=== PATIENT | male | born 1950 | race Caucasian/White ===

== ENCOUNTER 2022-04-16 22:17 | Inpatient (IN) | payer OTHER, MEDICARE ==
[~2022-04-16] VITALS: Ht 172.7 cm; Wt 60.2 kg
[2022-04-16 22:30] LABS: BASO # 0.1 K/mm3 (0.0-0.2); EOS # 0.1 K/mm3 (0.0-0.7); EOS % 0.8 % (0.0-4.0); GRAN # 4.7 K/mm3 (1.4-6.5); GRAN % 77.2 % (42.2-75.2); HEMATOCRIT 30.3 % (42.0-52.0); HEMOGLOBIN 10.5 g/dl (13.5-18.0); LYMPH # 0.7 K/mm3 (1.2-3.4); LYMPH % 10.8 % (20.0-51.0); MEAN CELL VOLUME 91 fl (80.0-100.0); MEAN CORPUSCULAR HEMOGLOBIN 31 pg (27-31); MEAN CORPUSCULAR HGB CONC 35 g/dl (33.0-37.0); MEAN PLATELET VOLUME 9.8 fl (7.4-10.4); MONO # 0.6 K/mm3 (0.1-0.6); MONO % 9.9 % (1.7-9.3); PLATELET COUNT 253 K/mm3 (130-400); RED BLOOD COUNT 3.34 M/mm3 (4.20-5.60); REDCELL DISTRIBUTION WIDTH-CV 12.5 % (11.5-14.5)
[2022-04-16 22:36] LABS: COLLECTION METHOD CLEAN CATCH
[2022-04-16 22:48] LABS: MUCOUS Present (NOT PRESENT); PH 6 (5-8); SQUAMOUS EPITHELIAL 0-2 /hpf (0-10); URINE APPEARANCE Hazy (CLEAR/HAZY); URINE BACTERIA Rare /hpf (NONE SEEN); URINE BLOOD 1+ (NEGATIVE); URINE COLOR Yellow (YELLOW); URINE GLUCOSE 3+ (NEGATIVE); URINE KETONE Trace (NEGATIVE); URINE NITRATE Negative (NEGATIVE); URINE PROTEIN(semi-quant) 1+ (NEGATIVE); URINE UROBILINOGEN Negative (NEGATIVE)
[2022-04-16 22:49] LABS: ALBUMIN 3.3 gm/dL (3.4-4.8); BILIRUBIN,TOTAL 0.2 mg/dL (0.2-1.2); CALCIUM 8.1 mg/dL (8.4-10.2); CREATININE, serum 1.71 mg/dL (0.72-1.25); POTASSIUM 4.2 mmol/L (3.5-4.5)
[2022-04-17] MEDS ORDERED: BASAGLAR K100 UNIT/1 SQ (03:52)
[2022-04-17] MEDS ORDERED: VITAMIN D31000 I1 PO (03:53)
[2022-04-17] MEDS ORDERED: TEGRETOL 2200 MG/TA1 PO (03:53)
[2022-04-17] MEDS ORDERED: VALIUM 5MG T5 MG/TAB PO (03:54)
[2022-04-17] MEDS ORDERED: ZESTRIL 20MG TA20 MG PO (03:55)
[2022-04-17] MEDS ORDERED: ZOCOR 80MG80 MG PO (03:56)
[2022-04-17] MEDS ORDERED: PRILOTC PO (03:56)
[2022-04-17] MEDS ORDERED: GLUCOPHAGE500 MG/TAB PO (03:56)
[2022-04-17 04:00] VITALS: BP 133/71; PULSE 102; TEMP 98.3
--- NOTE | 2022-04-17 04:00 | NUR ---
PT ARRIVED FROM ED TO ROOM.
[2022-04-17] MEDS ORDERED: SODIUM CHLORIDE1 GM PO (04:01)
[2022-04-17] MEDS ORDERED: ASPIRIN 81M81 MG/TA2 PO (05:04)
[2022-04-17 05:24] LABS: ARTERIAL BLD GAS O2 SATURATION 91.5 % (92-100); ARTERIAL BLD GAS TCO2 CT 25.5; ARTERIAL BLOOD GAS HCO3 24.2 meq/L (22-26); ARTERIAL BLOOD GAS PCO2 42.1 mmHg (35-45); ARTERIAL BLOOD GAS PO2 62.1 mmHg (80-100); ARTERIAL BLOOD GAS pH 7.38 (7.35-7.45)
[2022-04-17 06:29] LABS: BASO # 0.1 K/mm3 (0.0-0.2); BASO % 1.1 % (0.0-2.0); EOS % 0.8 % (0.0-4.0); GRAN # 3.4 K/mm3 (1.4-6.5); GRAN % 65.3 % (42.2-75.2); LYMPH # 1.1 K/mm3 (1.2-3.4); LYMPH % 20.6 % (20.0-51.0); MEAN CELL VOLUME 94 fl (80.0-100.0); MEAN CORPUSCULAR HGB CONC 33 g/dl (33.0-37.0); MEAN PLATELET VOLUME 10.4 fl (7.4-10.4); MONO # 0.6 K/mm3 (0.1-0.6); PLATELET COUNT 244 K/mm3 (130-400); RED BLOOD COUNT 3.11 M/mm3 (4.20-5.60); REDCELL DISTRIBUTION WIDTH-CV 12.5 % (11.5-14.5)
[2022-04-17 06:38] LABS: HEMATOCRIT 29.1 % (42.0-52.0); HEMOGLOBIN 9.6 g/dl (13.5-18.0); MEAN CORPUSCULAR HEMOGLOBIN 31 pg (27-31)
[2022-04-17 06:40] LABS: CALCIUM 7.8 mg/dL (8.4-10.2); CREATININE, serum 1.46 mg/dL (0.72-1.25); POTASSIUM 4.1 mmol/L (3.5-4.5)
--- NOTE | 2022-04-17 07:08 | NUR ---
Pt alert. Partially oriented. Able to state name and date, but unable to state correct answer for where he currently is. Pt's speech is difficult to comprehend. Pt is more alert and able to answer questions more adequetly now, then when first arriving to the unit. Pt was reporting signigicant pain when first arriving to the unit. Once the pt was settled and pain medication was administered per orders, the pt calmed down. Pt has a flaccid right hand that is contracted. The pt's right leg moves on the bed. Left side of the pt has normal movement. Q2 neuro assessments are being completed. Fall precautions are in place. Seizure precautions are in place. IV fluids continuing per orders. VS currently stable. On room air. BP stable. Afebrile. Pt does have some tremors/shaking. Pt frequently reports he needs to void, but is unable to void. After several attempts the pt was able to void x2, 150 ml and then 100 ml of gabe urine. Pt has a brace on the right hand and had a brace on the right foot. Pt does not have any significant skin issues. Scattered scabbing/crusting noted on the BLE. No edema noted. Admission intake and admission assessments completed. Allergies confirmed. Med rx reviewed. COVID and infectious disease assessments completed. Fall precautions in place. Bed low and locked, call hoff within reach. Pt does not report any questions at this time. No new concerns at this time.
[2022-04-17 07:11] LABS: MAGNESIUM 1.8 mg/dL (1.6-2.6)
[2022-04-17 07:32] LABS: TSH w REFLEX 1.897 uIU/mL (0.350-4.940)
[2022-04-17 07:38] VITALS: BP 114/66; PULSE 73; TEMP 98.2
--- NOTE | 2022-04-17 07:53 | NUR ---
PT AWAKE AND ALERT, GIVEN A URINAL. RIGHT SIDED WEAKNESS NOTED.DENIES ANT COMPLAINTS.
[2022-04-17 11:19] VITALS: BP 113/64; PULSE 78; TEMP 98.5
--- NOTE | 2022-04-17 13:54 | NUR ---
Communications Equipment Operator reviewed patient chart noting he is deemed oriented only to self this date and his speech is difficult to discern. Patient is in isolation precautions. Communications Equipment Operator attempted to contact patient daughter Matthew Echeverria for intake assessment/discharge planning; VM left requesting call back. *Discharge plan pending intake and discharge needs*
--- NOTE | 2022-04-17 14:22 | NUR ---
Care Connector received telephone call from patient adult daughter Matthew, who states patient was living independently in a home adjacent, within access road of their own home in [place], before the family moved to [facility] two weeks ago. Patient was receiving 30 hours of in-home healthcare services a week through the [place]. He had been previously largely independent in his ADLs, but after having been infected with Covid-19 three weeks ago the family noted his health and mobility declined. The decision to move him to [place] to live with family was made as the only other remaining family in [place] is an 18 year old grandchild. The family is currently staying in an AirBN and they have purchased a home that they plan to live in with patient, "we think it'll suit his needs." They are attending the walk-through of the new home today. Daughter has contacted the [place] and an intake was provided for patient at the clinic in [place] the day after the family arrived; he currently sees Dr. Rousseau at the [facility], and he obtains his medications through the [place]. His medications have been refilled and sent to the family's local PO Box already. Patient is seen by primary care at a minimum of once every 60 days. Patient has an intake with two different [place] approved home healthcare agencies on Monday this week, to establish his services locally. He will likely obtain 15 hours of in-home healthcare and 21 hours of respite care. The daughter is in coordination with a remote social media executive through the [place] for support but is largely coordinating all patient's care herself. Daughter states while they await in-home support services, daughter/family is providing all his ADLs/IADLs, except patient ambulates independently in his wheelchair and must be able to transfer and balance independently to avoid multiple recent falls. She provides his breakfast and meal prep through the rest of the day, facilitates his bathing and toileting in the afternoon upon return to home. He is currently using a bedside commode as a toilet riser. The new home will have shower grab bars and a shower chair. Lately, patient has been getting up alot at night to use the bathroom and daughter feels this is likely taxing him as he used to have a handheld bedpan that he used. Daughter is not certain if patient's declining health is related to his inability to fully rest/recover from Covid with the move and his need to do some self-care while the family provides what they can awaiting for the in-home healthcare intakes on Monday. Daughter would appreciate any additional social work support/assistance as patient's medical course continues. Daughter support's patient for skilled rehab as indicated. Patient plans to return to daughter's new home (with her spouse and young children) where he will reside long-term with VA in-home supports. Social Work continues to follow. *Discharge plan pending PT/OT evaluation and medical recommendations*
[2022-04-17 15:21] VITALS: BP 117/67; PULSE 66; TEMP 97.7
--- NOTE | 2022-04-17 18:00 | NUR ---
pt had a calm day, no adverse reaction noted, vss, orient and alert, with slurred speech, due med s given without a problem. pt has a right sided weakness, has brace on the right and left foot. c/o right shoulders pain prn med given
[2022-04-17 20:16] VITALS: BP 128/63; PULSE 87; TEMP 98.4
--- NOTE | 2022-04-17 20:30 | NUR ---
Initial shift assessment done, slurred speech so difficult to understand, Tele on, IV fluids of NS at 100cc/hr, partially oriented, right sided weakness, right arm flaccid, right leg very weak, right arm contractured.
[2022-04-18] VITALS (7 sets, daily range): BP systolic 124–144; BP diastolic 63–83; PULSE 80–99; TEMP 97.8–99.1
--- NOTE | 2022-04-18 07:30 | NUR ---
Did sleep fairly well from about 11pm- 0500, now awake, VSS, repositioned in bed, using the urinal without problems, states hes happy he still is alive for his birthday today!
--- NOTE | 2022-04-18 14:17 | NUR ---
The hospitalist notified NAVDEEP that the patient is medically cleared and ready to discharge. NAVDEEP contacted the patient's daughter, Matthew, to discuss discharge. Matthew confirms that they have been staying in an Airbnb in [place] and they will be closing on a house on . Matthew states that her and her work washer assembler, so the patient would need to be able to transfer to [facility] and bed on his home. NAVDEEP staffed with PT. PT reports that the patient was a max assist of 2 people to get to the commode and an assist of 1 to get back into the bed. PT does not feel that it would be safe for the patient to be home alone. NAVDEEP updated the patient's daughter, Matthew. Matthew would be interested in rehab. She states that she is already getting in home services lined up through the [facility] and had an appointment scheduled on Monday, but if the patient cannot transfer himself, then she is open to SNF. She is open to the facilities in [place] that are contracted with the VA. Matthew verified that the patient does not have Medicare and only VA services. She states that he is 100% service connected. Matthew states that the patient tested positive for COVID 3 weeks ago at an urgent care in [place]. She is unsure which urgent care it is. NAVDEEP contacted and faxed a referral to [facility] and [facility]. Awaiting screens.
--- NOTE | 2022-04-18 18:27 | NUR ---
MYSELF AND ANOTEHR NURSE ATTEMTPED A NEW IV X2 TRIES EACH, ALL UNSUCCESSFUL. CHARGE AWARE.WILL PASS ALONG TO NEXT RN.
--- NOTE | 2022-04-18 21:20 | NUR ---
Initial shift assessment done- has needed an IV site since day shift was unsuccessful, was able to start a 22g to left hand - IV fluids restarted at 100cc/hr and Zosyn at 25cc/hr, Tele on, Using urinal in bed,, slurred speech so at times difficult to understand, overall oriented to name /place--will ask the same question at times, right arm is flacced/contractured, right leg very weak, Bed alarm on- call light in reach,, denies need for pain med but does want his nightime Valium- will give as ordered.
[2022-04-19 03:13] VITALS: BP 143/73; PULSE 85; TEMP 98.5
--- NOTE | 2022-04-19 05:28 | NUR ---
Quiet night-- has been sleeping really good tonight,tele remains on-- IV fluids continue at 100cc/hr, vss , remains on RA
[2022-04-19 06:15] LABS: BASO % 0.9 % (0.0-2.0); EOS # 0.1 K/mm3 (0.0-0.7); EOS % 1.3 % (0.0-4.0); GRAN # 2.5 K/mm3 (1.4-6.5); GRAN % 55.3 % (42.2-75.2); LYMPH # 1.4 K/mm3 (1.2-3.4); LYMPH % 29.7 % (20.0-51.0); MEAN CELL VOLUME 93 fl (80.0-100.0); MEAN CORPUSCULAR HGB CONC 34 g/dl (33.0-37.0); MEAN PLATELET VOLUME 10.1 fl (7.4-10.4); MONO # 0.6 K/mm3 (0.1-0.6); MONO % 12.6 % (1.7-9.3); PLATELET COUNT 254 K/mm3 (130-400)
[2022-04-19 06:28] LABS: HEMATOCRIT 27.9 % (42.0-52.0); HEMOGLOBIN 9.4 g/dl (13.5-18.0); MEAN CORPUSCULAR HEMOGLOBIN 31 pg (27-31)
[2022-04-19 06:37] LABS: ALBUMIN 2.6 gm/dL (3.4-4.8); CALCIUM 7.9 mg/dL (8.4-10.2); CREATININE, serum 1.27 mg/dL (0.72-1.25); MAGNESIUM 1.7 mg/dL (1.6-2.6); PHOSPHOROUS 3.8 mg/dL (2.3-4.7); POTASSIUM 4.1 mmol/L (3.5-4.5)
[2022-04-19 08:00] VITALS: BP 131/72; PULSE 74; TEMP 98.2
--- NOTE | 2022-04-19 08:50 | NUR ---
Admissions verified that the patient does have Medicare. SW notified and faxed an updated facesheet to [facility] and [facility].
--- NOTE | 2022-04-19 10:25 | NUR ---
Michelle, at [facility], reports that they are unable to accept the patient; due to his level of dementia and no speacial care options or beds available at this time.
[2022-04-19 12:00] VITALS: BP 132/78; PULSE 81
--- NOTE | 2022-04-19 14:28 | NUR ---
NAVDEEP contacted Rico at [facility] to follow up on the referral. Rico reports that their clinical team has not been able to look over the referral yet and their business person is suppose to be looking into the patient's VA connections as well. He states that they should be be able to look into these all soon. NAVDEEP faxed updates to [facility].
[2022-04-19 16:00] VITALS: BP 147/80; PULSE 93
--- NOTE | 2022-04-19 20:00 | NUR ---
PATIENT IS ALERT AND ORIENTED X2. PATIENT DOES DISPLAY SOME CONFUSION/FORGETFULNESS. PATIENT TALKING ON PHONE TO DAUGHTER. VSS. SR ON TELE AT 100. C/O FEELING STIFF. GAVE PRN TYLENOL BEFORE BED WITH HS MEDS. PATIENT HAS HX OF CVA WITH RIGHT SIDE AFFECTED/WEAK. 2 MAX ASSIST. PT/OT CONSULTED. HEAD TO TOE ASSESSMENT COMPLETE, SEE CHARTING. IV ABX INFUSING VIA PUMP INTO LEFT HAND IV. PATIENT ON COVID ISOLATION. O2 SATS IN MID 90'S ON RA. NO C/O SOB. NO COUGH NOTED AT THIS TIME. SWALLOWING WITHOUT DIFFICULTY AND TOLERATING ADA DIET. HS BS WAS 291, SSI GIVEN. PATIENT NOW READY FOR BED. LIGHTS TURNED DOWN, BED ALARM ON, AND CALL LIGHT IN REACH. NO OTHER NEEDS AT THIS TIME.
[2022-04-19 20:06] VITALS: BP 133/89; PULSE 100; TEMP 98.8
[2022-04-20] VITALS (7 sets, daily range): BP systolic 105–146; BP diastolic 48–91; PULSE 66–93; TEMP 98–99
[2022-04-20 06:51] LABS: BASO % 0.9 % (0.0-2.0); EOS # 0.1 K/mm3 (0.0-0.7); GRAN # 2.8 K/mm3 (1.4-6.5); LYMPH # 1.2 K/mm3 (1.2-3.4); LYMPH % 27.1 % (20.0-51.0); MEAN CELL VOLUME 94 fl (80.0-100.0); MEAN CORPUSCULAR HGB CONC 33 g/dl (33.0-37.0); MEAN PLATELET VOLUME 9.5 fl (7.4-10.4); MONO # 0.5 K/mm3 (0.1-0.6); MONO % 9.8 % (1.7-9.3); PLATELET COUNT 267 K/mm3 (130-400); RED BLOOD COUNT 3.07 M/mm3 (4.20-5.60); REDCELL DISTRIBUTION WIDTH-CV 13.1 % (11.5-14.5)
[2022-04-20 06:52] LABS: HEMATOCRIT 28.7 % (42.0-52.0); HEMOGLOBIN 9.5 g/dl (13.5-18.0); MEAN CORPUSCULAR HEMOGLOBIN 31 pg (27-31)
[2022-04-20 07:15] LABS: ALBUMIN 2.6 gm/dL (3.4-4.8); CREATININE, serum 1.37 mg/dL (0.72-1.25); MAGNESIUM 1.8 mg/dL (1.6-2.6); PHOSPHOROUS 3.7 mg/dL (2.3-4.7); POTASSIUM 4.4 mmol/L (3.5-4.5)
--- NOTE | 2022-04-20 11:22 | NUR ---
Patient alert and oriented. Complaints of abdominal pain and headache. PRN tylenol given. PT reported very large incontinent and continent bowel movement while working with patient, loose, brown, mucous and very foul smelling. Patient right side upper extremity flaccid, right lower extremity chirag weak. Brace and orthotic shoe used for walking support. Otherwise neurologically intact.
--- NOTE | 2022-04-20 13:13 | NUR ---
Rico, at [facility], reports that they would need the results from the urgent care in [place], confirming he tested positive for COVID then. Otherwise, they would have to go off when the patient tested positive here and they would not be able to take him until 10 days after that test. He tested positive at the hospital on 04/16. NAVDEEP contacted the patient's daughter, Matthew, to update. Matthew reports that she believes they stopped at an urgent care in [place], [place], when they were on their way up here. She cannot remember what urgent care it was or any businesses/identifiers that were located by it. NAVDEEP updated Nina, c programmer. Nina recommended calling [place] [facility]. NAVDEEP contacted [place] [facility]. They report that this is not the right dept for this. NAVDEEP contacted [facility] in [place] to inquire if they report their COVID positive and would have this on record. NAVDEEP was transferred to a [place] that works there. NAVDEEP left her a voicemail.
--- NOTE | 2022-04-20 18:18 | NUR ---
Patient worked with therapy well today. Had episodes of very loose, watery and mucousy bowel movements during therapy this morning. Patient had difficulty controlling bowel during therapy as well. No further bowel movements throughout the day, sample needed for c-diff test. Patient takes meds whole with water. Complaints of headache and abdominal pain today. Patient alert and oriented with moments of some confused conversation about "[facility]il, the [facility] not wanting [facility]" and asking if staff was "mad at him". provider discontinued neurochecks. Discharge plan for placement, however 10 wait with covid + test.
[2022-04-21 04:27] VITALS: BP 127/75; PULSE 92; TEMP 98.1
--- NOTE | 2022-04-21 05:45 | NUR ---
ASSESSMENT COMPLETE FOR SUPERVISING FLOORPERSON. PT RESTLESS IN BED. WHEN ASKED WHAT WAS WRONG. PT STATED HE DIDN'T WANT TO , THAT HE NEEDED THE PILL THAT STOPPED HIM FROM FARTING. I REASSURED PT THAT EVEN THOUGH I DIDN'T HAVE ANY PILLS THAT WOULD STOP HIM FROM PASSING GAS, HE WOULD NOT BECAUSE OF IT AND THAT I WOULD CHECK ON HIM OFTEN, TO MAKE SURE HE WAS OK. PT SAID THANK YOU, GOD BLESS YOU, I WILL BE ABLE TO SLEEP TONIGHT. PT EXPRESSED NO ADDITIONAL NEEDS AT THIS TIME. CALL LIGHT WITHIN REACH.
[2022-04-21 07:05] LABS: BASO # 0.1 K/mm3 (0.0-0.2); EOS # 0.1 K/mm3 (0.0-0.7); GRAN # 3.2 K/mm3 (1.4-6.5); GRAN % 62.4 % (42.2-75.2); HEMOGLOBIN 10.7 g/dl (13.5-18.0); LYMPH # 1.4 K/mm3 (1.2-3.4); LYMPH % 26.4 % (20.0-51.0); MEAN CELL VOLUME 93 fl (80.0-100.0); MEAN CORPUSCULAR HEMOGLOBIN 31 pg (27-31); MEAN CORPUSCULAR HGB CONC 34 g/dl (33.0-37.0); MONO # 0.4 K/mm3 (0.1-0.6); PLATELET COUNT 306 K/mm3 (130-400); RED BLOOD COUNT 3.41 M/mm3 (4.20-5.60)
[2022-04-21 07:08] LABS: HEMATOCRIT 31.6 % (42.0-52.0)
[2022-04-21 07:33] LABS: CALCIUM 8.6 mg/dL (8.4-10.2); CREATININE, serum 1.35 mg/dL (0.72-1.25); MAGNESIUM 1.8 mg/dL (1.6-2.6); POTASSIUM 4.2 mmol/L (3.5-4.5)
[2022-04-21 07:49] VITALS: BP 100/68; PULSE 89; TEMP 97.9
--- NOTE | 2022-04-21 10:21 | NUR ---
Patient resting in chair on assessment. Placed back in bed. No complaints of pain. Skin intact. Lungs clear. Patient alert to self, and hospital. Mildy alert to situation. Patient understands to not get out of bed. Fall precuations in place. Meds taken whole with water.
--- NOTE | 2022-04-21 10:41 | NUR ---
Rico, at [facility], reports that they are able to accept the patient for a skilled stay; but cannot take him until Monday, 04/26, unless we gets records of the patient's positive COVID test in [place] or prove that the infection is not acute and is residual. SW to fax updates to [facility].
[2022-04-21 11:47] VITALS: BP 129/81; PULSE 81; TEMP 98.1
[2022-04-21 15:45] VITALS: BP 143/75; PULSE 80; TEMP 98.1
--- NOTE | 2022-04-21 17:23 | NUR ---
Patient rested comfortably today. No complaints of pain, no SOB. No change in patient status during shift. Discharge plan for placement.
[2022-04-21 20:54] VITALS: BP 119/66; PULSE 84; TEMP 98.5
[2022-04-22 00:05] VITALS: BP 116/72; PULSE 79; TEMP 98.3
[2022-04-22 03:30] VITALS: BP 113/68; PULSE 77; TEMP 97.7
--- NOTE | 2022-04-22 05:45 | NUR ---
ASSESSMENT COMPLETE FOR ELDERLY CAREGIVER. PT CONTINUES WITH SOME CONFUSION. PT HAD ONE INCONTINENT STOOL THIS SHIFT. PT DENIED PAIN, SOB OR DIZZINESS. PT HAD AN OTHERWISE UNEVENTFUL NIGHT. PT EXPRESSED NO ADDITONAL NEEDS AT THIS TIME. CALL LIGHT WITHIN REACH.
[2022-04-22 07:53] VITALS: BP 102/65; PULSE 82; TEMP 97.5
[2022-04-22 08:12] LABS: BASO # 0.1 K/mm3 (0.0-0.2); BASO % 0.9 % (0.0-2.0); EOS # 0.1 K/mm3 (0.0-0.7); GRAN # 3.1 K/mm3 (1.4-6.5); GRAN % 55.8 % (42.2-75.2); HEMOGLOBIN 10.8 g/dl (13.5-18.0); LYMPH # 1.8 K/mm3 (1.2-3.4); LYMPH % 32.1 % (20.0-51.0); MEAN CELL VOLUME 91 fl (80.0-100.0); MEAN CORPUSCULAR HEMOGLOBIN 31 pg (27-31); MEAN CORPUSCULAR HGB CONC 35 g/dl (33.0-37.0); MEAN PLATELET VOLUME 9.8 fl (7.4-10.4); MONO # 0.5 K/mm3 (0.1-0.6); MONO % 8.8 % (1.7-9.3); PLATELET COUNT 331 K/mm3 (130-400); RED BLOOD COUNT 3.44 M/mm3 (4.20-5.60); REDCELL DISTRIBUTION WIDTH-CV 13.2 % (11.5-14.5)
[2022-04-22 08:14] LABS: HEMATOCRIT 31.2 % (42.0-52.0)
[2022-04-22 08:26] LABS: CALCIUM 8.3 mg/dL (8.4-10.2); CREATININE, serum 1.42 mg/dL (0.72-1.25); MAGNESIUM 1.9 mg/dL (1.6-2.6); PHOSPHOROUS 4.5 mg/dL (2.3-4.7); POTASSIUM 4.2 mmol/L (3.5-4.5)
[2022-04-22 11:45] VITALS: BP 112/67; PULSE 83; TEMP 97.6
--- NOTE | 2022-04-22 15:26 | NUR ---
NAVDEEP updated the patient's daughter, Matthew, about [facility]'s acceptance and how they can take on Monday. Matthew verbalized understanding and is in agreement to the plan. She states that she is getting home health services all set up for the patient for when he is ready to discharge from [facility]. NAVDEEP to fax updates to [facility].
[2022-04-22 15:45] VITALS: BP 113/65; PULSE 84; TEMP 97.6
--- NOTE | 2022-04-22 17:57 | NUR ---
saraneverardo t had a fairly good day orient x4, vss. due medication given as prescribed no adverse reaction noted. denies complaints.
[2022-04-22 19:49] VITALS: BP 137/75; PULSE 93; TEMP 97.9
[2022-04-23 00:04] VITALS: BP 133/52; PULSE 80; TEMP 98.1
[2022-04-23 04:00] VITALS: BP 115/59; PULSE 89; TEMP 98
--- NOTE | 2022-04-23 06:00 | NUR ---
ASSESSMENT COMPLETE FOR CASINO SUPERVISOR. PT RESTING IN BED NAPPING. PT COMPLAINED RIGHT AT SHIFT CHANGE OF GENERAL BODY ACHES. PT GIVEN TYLENOL FOR PAIN. PT DENIED CHEST PAIN, PALPITATIONS, SOB, N,V,D OR DIZZINESS. PT EXPRESSED NO ADDITIONAL NEEDS AT THIS ASSESSMENT. CALL LIGHT WITHIN REACH.
[2022-04-23 08:21] VITALS: BP 124/70; PULSE 80; TEMP 98.2
[2022-04-23 12:05] VITALS: BP 126/564; BP 126/64; PULSE 75; TEMP 98.2
[2022-04-23 16:49] VITALS: BP 116/68; PULSE 84; TEMP 97.7
--- NOTE | 2022-04-23 17:44 | NUR ---
PT HAD A CALM DAY, VSS, ORIENT X4, DUE PRESCRIBED MEDICATION GIVEN, NO ADVERSE REACTION DOCUMENTED, PT RAISED COMPLAINTS PAIN ON THE RIGHT SHOULDER, PRN PAIN MEDICATION GIVEN PRESCRIBED.
[2022-04-23 20:27] VITALS: BP 150/60; PULSE 83; TEMP 97.7
[2022-04-24] VITALS (7 sets, daily range): BP systolic 100–138; BP diastolic 51–88; PULSE 69–93; TEMP 97.4–98.3
--- NOTE | 2022-04-24 05:00 | NUR ---
ASSESSMENT COMPLETE FOR ICT ANALYST. PT RESTING IN BED NAPPING. PT COMPLAINED OF GENERAL BODY ACHES. PT GIVEN TYLENOL FOR PAIN. PT DID NOT FEEL TYLENOL WAS EFFECTIVE FOR HIS PAIN. HOSPITALIST CALLED. NORCO ORDERED AND GIVEN. PT FELT NORCO WAS EFFECTIVE FOR HIS PAIN. PT DENIED CHEST PAIN, PALPITATIONS, SOB, N,V,D OR DIZZINESS. PT EXPRESSED NO ADDITIONAL NEEDS AT THIS TIME. CALL LIGHT WITHIN REACH.
--- NOTE | 2022-04-24 07:30 | NUR ---
PT EATING BREAKFAST DURING BEDSIDE REPORT.
[2022-04-24 07:44] LABS: BASO # 0.1 K/mm3 (0.0-0.2); BASO % 1.3 % (0.0-2.0); EOS # 0.1 K/mm3 (0.0-0.7); EOS % 2.1 % (0.0-4.0); GRAN # 3.1 K/mm3 (1.4-6.5); GRAN % 60.4 % (42.2-75.2); HEMOGLOBIN 10.6 g/dl (13.5-18.0); LYMPH # 1.5 K/mm3 (1.2-3.4); LYMPH % 28.5 % (20.0-51.0); MEAN CELL VOLUME 93 fl (80.0-100.0); MEAN CORPUSCULAR HEMOGLOBIN 32 pg (27-31); MEAN CORPUSCULAR HGB CONC 34 g/dl (33.0-37.0); MONO # 0.4 K/mm3 (0.1-0.6); MONO % 7.3 % (1.7-9.3); PLATELET COUNT 271 K/mm3 (130-400); RED BLOOD COUNT 3.36 M/mm3 (4.20-5.60); REDCELL DISTRIBUTION WIDTH-CV 13.5 % (11.5-14.5)
[2022-04-24 08:27] LABS: CALCIUM 8.2 mg/dL (8.4-10.2); CREATININE, serum 1.38 mg/dL (0.72-1.25); POTASSIUM 4.2 mmol/L (3.5-4.5)
[2022-04-24 08:30] LABS: HEMATOCRIT 31.3 % (42.0-52.0)
--- NOTE | 2022-04-24 18:10 | NUR ---
PT HAD A CALM DAY, VSS, ORIENT X4, DUE MEDS GIVEN NO ADVERSE REACTION NOTED. COMPLAINTS OF RIGHT SHOULDER AND RIGHT LOWER EXTRIMITY PAIN PT GIVEN PRN PAIN MEDICATIONS PRESCRIBED.
[2022-04-25 03:15] VITALS: BP 109/68; PULSE 75; TEMP 97.9
--- NOTE | 2022-04-25 05:30 | NUR ---
ASSESSMENT COMPLETE FOR SENIOR QUALITY ASSURANCE ANALYST. PT UPSET ABOUT GOING TO [facility] AND DIDN'T WANT TO TAKE HIS PILLS, "I'M JUST GOING TO ." PT FEELS, "THEY'RE GOING TO LOCK ME UP!" I SPOKE WITH THE PT ABOUT BEING ABLE TO REHAB AND GOT STRONGER, TO POSSIBLY BE MORE INDEPENDENT. DAUGHTER CALLED. SHE ASSURED PT THAT HE COULD COME STAY WITH HER ONCE HE GETS STRONGER. PT CALM DOWN AND DECIDED TO TAKE HIS PILLS. PT EXPRESSED NO ADDITIONAL NEEDS. CALL LIGHT WITHIN REACH.
[2022-04-25 06:59] LABS: BASO # 0.1 K/mm3 (0.0-0.2); BASO % 0.9 % (0.0-2.0); EOS # 0.1 K/mm3 (0.0-0.7); EOS % 1.7 % (0.0-4.0); GRAN # 3.8 K/mm3 (1.4-6.5); GRAN % 65.3 % (42.2-75.2); HEMOGLOBIN 11.8 g/dl (13.5-18.0); LYMPH # 1.4 K/mm3 (1.2-3.4); LYMPH % 23.8 % (20.0-51.0); MEAN CELL VOLUME 93 fl (80.0-100.0); MEAN CORPUSCULAR HEMOGLOBIN 31 pg (27-31); MEAN CORPUSCULAR HGB CONC 34 g/dl (33.0-37.0); MEAN PLATELET VOLUME 10.1 fl (7.4-10.4); MONO # 0.4 K/mm3 (0.1-0.6); MONO % 7.6 % (1.7-9.3); RED BLOOD COUNT 3.78 M/mm3 (4.20-5.60); REDCELL DISTRIBUTION WIDTH-CV 13.5 % (11.5-14.5)
[2022-04-25 07:02] LABS: HEMATOCRIT 35.1 % (42.0-52.0); PLATELET COUNT 381 K/mm3 (130-400)
[2022-04-25 07:04] LABS: CALCIUM 8.6 mg/dL (8.4-10.2); CREATININE, serum 1.61 mg/dL (0.72-1.25); POTASSIUM 4.9 mmol/L (3.5-4.5)
[2022-04-25 08:10] VITALS: BP 124/79; PULSE 83; TEMP 98.1
--- NOTE | 2022-04-25 09:27 | NUR ---
ASSESSMENT COMPLETE FOR OPERATIONS CHIEF. PT UPSET ABOUT GOING TO [facility] AND DIDN'T WANT TO TAKE HIS PILLS, "I'M JUST GOING TO ." PT FEELS, "THEY'RE GOING TO LOCK ME UP!" I SPOKE WITH THE PT ABOUT BEING ABLE TO REHAB AND GOT STRONGER, TO POSSIBLY BE MORE INDEPENDENT. DAUGHTER CALLED. SHE ASSURED PT THAT HE COULD COME STAY WITH HER ONCE HE GETS STRONGER. PT CALM DOWN AND DECIDED TO TAKE HIS PILLS. PT EXPRESSED NO ADDITIONAL NEEDS. CALL LIGHT WITHIN REACH.
--- NOTE | 2022-04-25 09:42 | NUR ---
PT RESTING IN BED. MORNING MEDICATIONS GIVEN. SHIFT ASSESSMENT COMPLETED. PT DENIES ANY PAIN OR NEEDS. R SIDE FLACCID. PT SPEECH IN GARBLED BUT PT A&O. PT ON ROOM AIR. WILL CONTINUE TO MONITOR.
[2022-04-25 11:25] VITALS: BP 119/69; PULSE 89; TEMP 98.1
--- NOTE | 2022-04-25 14:09 | NUR ---
Karina with [facility] states that they are able to accept this patient today if he is medically cleared. Hospitalist and patient's RN notified.
--- NOTE | 2022-04-25 14:44 | NUR ---
Patient's discharge orders and clinical updates faxed to [facility]. Transportation arranged for them to pick the patient up at 1530 today. Patient's RN updated. Phone call made to Matthew and notified of discharge plan. Matthew verbalizes her agreement.
--- NOTE | 2022-04-25 15:47 | NUR ---
IV D/C. REPORT CALLED TO RN AT [facility]. DISCHARGE PACKET GIVEN TO SENIOR ACCOUNTING CLERK. PT ESCORTED DOWN WITH PERSONAL BELONGINGS. WILL D/C FROM SYSTEM.
== END 2022-04-25 15:48 | DRG 177 ==
LOC: COL.ER 22:17 → MEDICAL 04-17 02:49
PROVIDERS: Emergency Medicine; Internal Medicine; Nurse Practitioner Family; ADMIT Student in an Organized Health Care Education/Training Program
DX: U07.1 COVID-19 (principal); G93.41 Metabolic encephalopathy; I69.354 Hemiplegia and hemiparesis following cerebral infarction affecting left non-dominant side; N39.0 Urinary tract infection, site not specified; E87.1 Hypo-osmolality and hyponatremia; E87.2 Acidosis; I12.9 Hypertensive chronic kidney disease with stage 1 through stage 4 chronic kidney disease, or unspecified chronic kidney disease; N18.2 Chronic kidney disease, stage 2 (mild); E78.5 Hyperlipidemia, unspecified; G40.909 Epilepsy, unspecified, not intractable, without status epilepticus; D64.9 Anemia, unspecified; M25.511 Pain in right shoulder; M25.561 Pain in right knee; E11.649 Type 2 diabetes mellitus with hypoglycemia without coma; S00.91XA Abrasion of unspecified part of head, initial encounter; W18.39XA Other fall on same level, initial encounter; E11.65 Type 2 diabetes mellitus with hyperglycemia; Z79.4 Long term (current) use of insulin; Z87.820 Personal history of traumatic brain injury; Y93.89 Activity, other specified; Y92.89 Other specified places as the place of occurrence of the external cause
CPT/HCPCS: 99233-AI; J0696; J1644; J1815; J2270; J2405; J2543; J7030

== ENCOUNTER → 2022-04-28 | Outpatient (CLI) | payer MEDICARE ==
[~2022-04-28] MED LIST: ASPIRIN 81M81 MG/TA2 PO; BASAGLAR K100 UNIT/1 SQ; GLUCOPHAGE500 MG/TAB PO; PRILOTC PO; SODIUM CHLORIDE1 GM PO; TEGRETOL 2200 MG/TA1 PO; VALIUM 5MG T5 MG/TAB PO; VITAMIN D31000 I1 PO; ZESTRIL 20MG TA20 MG PO; ZOCOR 80MG80 MG PO
[2022-04-28 10:20] LABS: BASO # 0.1 K/mm3 (0.0-0.2); BASO % 1.4 % (0.0-2.0); EOS # 0.1 K/mm3 (0.0-0.7); EOS % 2.2 % (0.0-4.0); GRAN # 3.4 K/mm3 (1.4-6.5); GRAN % 57.9 % (42.2-75.2); LYMPH # 1.8 K/mm3 (1.2-3.4); LYMPH % 30.4 % (20.0-51.0); MEAN CELL VOLUME 94 fl (80.0-100.0); MEAN CORPUSCULAR HGB CONC 33 g/dl (33.0-37.0); MEAN PLATELET VOLUME 11.4 fl (7.4-10.4); MONO # 0.5 K/mm3 (0.1-0.6); MONO % 7.8 % (1.7-9.3); PLATELET COUNT 348 K/mm3 (130-400); RED BLOOD COUNT 3.07 M/mm3 (4.20-5.60); REDCELL DISTRIBUTION WIDTH-CV 13.9 % (11.5-14.5)
[2022-04-28 10:21] LABS: HEMATOCRIT 28.7 % (42.0-52.0); HEMOGLOBIN 9.6 g/dl (13.5-18.0); MEAN CORPUSCULAR HEMOGLOBIN 31 pg (27-31)
[2022-04-28 10:44] LABS: CALCIUM 8.2 mg/dL (8.4-10.2); CREATININE, serum 1.64 mg/dL (0.72-1.25); POTASSIUM 4.9 mmol/L (3.5-4.5)
== END ==
LOC: ZLAB.STJ 09:44
PROVIDERS: Internal Medicine
DX: K72.90 Hepatic failure, unspecified without coma (principal)

== ENCOUNTER → 2022-05-03 | Outpatient (CLI) | payer MEDICARE ==
[2022-05-03 13:58] LABS: CALCIUM 8.8 mg/dL (8.4-10.2); CREATININE, serum 1.7 mg/dL (0.72-1.25); POTASSIUM 4.8 mmol/L (3.5-4.5)
== END ==
LOC: ZLAB.STJ 13:12
PROVIDERS: Internal Medicine
DX: G93.41 Metabolic encephalopathy (principal)

== ENCOUNTER → 2022-05-09 | Outpatient (CLI) | payer MEDICARE ==
[2022-05-09 10:37] LABS: CALCIUM 8.9 mg/dL (8.4-10.2); CREATININE, serum 1.36 mg/dL (0.72-1.25); POTASSIUM 4.7 mmol/L (3.5-4.5)
== END ==
LOC: ZLAB.STJ 09:46
PROVIDERS: Internal Medicine
DX: G43.419 Hemiplegic migraine, intractable, without status migrainosus (principal)

== ENCOUNTER 2022-12-12 05:39 | Observation (INO) | payer OTHER, MEDICARE ==
[~2022-12-12] VITALS: Ht 170.2 cm; Wt 72.7 kg
[~2022-12-12 05:39] MED LIST changes: +AMOXICILLIN 8751 TAB PO; +CEPHALEXIN500 M1 PO; +DICLOFENAC SOD2.5 ML TOP; +FERRO-TIME325 MG PO; +LIPITOR 80MG80 MG PO; +MYLICON 8080 MG/TAB. PO; +NORVASC2.5 MG PO
[2022-12-12 06:11] LABS: BASO # 0.1 K/mm3 (0.0-0.2); EOS # 0.1 K/mm3 (0.0-0.7); EOS % 1.4 % (0.0-4.0); GRAN # 5.9 K/mm3 (1.4-6.5); GRAN % 67.6 % (42.2-75.2); HEMOGLOBIN 12.3 g/dl (13.5-18.0); LYMPH # 2.1 K/mm3 (1.2-3.4); LYMPH % 24.7 % (20.0-51.0); MEAN CELL VOLUME 95 fl (80.0-100.0); MEAN CORPUSCULAR HEMOGLOBIN 33 pg (27-31); MEAN CORPUSCULAR HGB CONC 34 g/dl (33.0-37.0); MEAN PLATELET VOLUME 9.5 fl (7.4-10.4); MONO # 0.4 K/mm3 (0.1-0.6); MONO % 4.8 % (1.7-9.3); PLATELET COUNT 269 K/mm3 (130-400); RED BLOOD COUNT 3.77 M/mm3 (4.20-5.60); REDCELL DISTRIBUTION WIDTH-CV 12.7 % (11.5-14.5)
[2022-12-12 06:14] LABS: HEMATOCRIT 35.8 % (42.0-52.0)
[2022-12-12 06:24] LABS: ALBUMIN 4.1 gm/dL (3.4-4.8); BILIRUBIN,TOTAL 0.2 mg/dL (0.2-1.2); C-REACTIVE PROTEIN 0.23 mg/dL (0.00-0.50); CALCIUM 8.8 mg/dL (8.4-10.2); CREATININE, serum 1.61 mg/dL (0.72-1.25); TOTAL PROTEIN 7.4 gm/dL (6.2-8.1)
[2022-12-12 06:31] LABS: COLLECTION METHOD IN
[2022-12-12 06:47] LABS: SQUAMOUS EPITHELIAL None Seen /hpf (0-10); URINE BACTERIA None Seen /hpf (NONE SEEN); URINE RBC 0-2 /hpf (0-2)
[2022-12-12 06:50] LABS: URINE APPEARANCE Clear (CLEAR/HAZY); URINE BLOOD TRACE-INTACT (NEGATIVE); URINE COLOR Yellow (YELLOW); URINE GLUCOSE TRACE (NEGATIVE); URINE KETONE Negative (NEGATIVE); URINE NITRATE Negative (NEGATIVE); URINE PROTEIN(semi-quant) 1+ (NEGATIVE); URINE UROBILINOGEN 0.2 E.U/dL (0.2-1.0)
--- NOTE | 2022-12-12 10:26 | NUR ---
SW consulted for possible placement. SW met with patients daughter Matthew at bedside. Per daughter, patient at baseline is able to ambulate with the assistance of a cane, but also has a wheelchair at home to utilize. He is able to dress on his own, but does require supervision with showing due to being a fall risk. Patients speech is slurred at baseline due to past hx of TBI while in [place]. He has in home caregivers 7 days a week (M-F for 4 hours and Sat/sun for 8 hours each) along with PT/OT therapy through a company called [employer] that is contracted through the [place]. Patient has an RN that comes once a month along with a PCP that comes to the home, Pastora Smith whom saw the patient on 12/07 post dc from this facility, to which Matthew verbalizes that the patient was talking and active. Patients also has a PCP through the [facility] . Matthew verbalizes concern over the patients mentation this morning as yesterday he was at his baseline, meaning talking in full conversations eating normal, drinking normal, and ambulating at his baseline. This morning, Matthew states that the patients mentation took a sharp decline stating that he was unable to ambulate to the bathroom at all and his speech was mumbled. Matthew attempts to arouse patient with SW at bedside, and patient unable to make words and minimally arouses. NAVDEEP asked Matthew about fdc placement, which she states that this is not something they are interested in and that they have made sure to put into place all needed services with the [facility] to keep the patient at home, instead she is more concerned with finding out why the patient went to bed at baseline and woke up declined. Patients RN updated along with ED physician and hospitalist.
[2022-12-12 13:53] VITALS: BP 102/68; PULSE 75; TEMP 97.8
[2022-12-12 16:35] VITALS: BP 134/61; PULSE 65; TEMP 98.4
[2022-12-12] MEDS ORDERED: VALIUM 5MG T5 MG/TAB PO (19:03)
[2022-12-12 19:48] VITALS: BP 153/81; PULSE 80; TEMP 97.5
[2022-12-13 00:26] VITALS: BP 114/57; PULSE 59; TEMP 98
[2022-12-13 05:06] VITALS: BP 101/50; PULSE 69; TEMP 97.9
[2022-12-13 06:54] LABS: BASO # 0.1 K/mm3 (0.0-0.2); BASO % 0.8 % (0.0-2.0); EOS # 0.1 K/mm3 (0.0-0.7); EOS % 0.8 % (0.0-4.0); GRAN # 4.7 K/mm3 (1.4-6.5); GRAN % 64.9 % (42.2-75.2); HEMOGLOBIN 11.2 g/dl (13.5-18.0); LYMPH # 1.9 K/mm3 (1.2-3.4); LYMPH % 26.2 % (20.0-51.0); MEAN CELL VOLUME 94 fl (80.0-100.0); MEAN CORPUSCULAR HEMOGLOBIN 33 pg (27-31); MEAN CORPUSCULAR HGB CONC 35 g/dl (33.0-37.0); MEAN PLATELET VOLUME 9.4 fl (7.4-10.4); MONO # 0.5 K/mm3 (0.1-0.6); MONO % 6.9 % (1.7-9.3); PLATELET COUNT 262 K/mm3 (130-400); REDCELL DISTRIBUTION WIDTH-CV 12.8 % (11.5-14.5)
[2022-12-13 06:55] LABS: HEMATOCRIT 31.8 % (42.0-52.0)
[2022-12-13 07:21] LABS: CALCIUM 8.5 mg/dL (8.4-10.2); CREATININE, serum 1.28 mg/dL (0.72-1.25); POTASSIUM 4.1 mmol/L (3.5-4.5)
[2022-12-13 08:00] VITALS: BP 109/56; PULSE 66; TEMP 98
--- NOTE | 2022-12-13 10:11 | NUR ---
NAVDEEP notifed by hospitalist that the patient is ready of discharge. Phone call made to the patients daughter to notify. No aswer, message left.
[2022-12-13 11:49] VITALS: BP 114/55; PULSE 62; TEMP 97.8
--- NOTE | 2022-12-13 11:55 | NUR ---
PATIENT HAS EEG ORDERED. IF PATIENT DISCHARGES BEFORE EEG DONE. CAN ORDER EEG AN OUTPATIENT. THANKS
--- NOTE | 2022-12-13 13:56 | NUR ---
Initial visit: Nurse Unit Manager stopped by room on rounds. Pt was resting and content. Pt has no needs right now. Nurse Unit Manager will follw up as needed.
--- NOTE | 2022-12-13 15:27 | NUR ---
NAVDEEP received phone call from the patients daughter Matthew. Update provided and Matthew notifed that the patient is able to return home later today. Matthew verbalizes her agreement and verbalizes that she will be in this afternoon after she got off of work to pick the patient up. Patients RN updated.
[2022-12-13 16:00] VITALS: BP 140/70; PULSE 71; TEMP 98
--- NOTE | 2022-12-13 17:09 | NUR ---
Patient discharged to home, picked up by daughter. Daughter and patient educated on discharge instructions and medications, both verbalized understanding. Safely assisted to car via wheelchair by nursing staff.
== END 2022-12-13 17:10 | disposition home health service (06) ==
LOC: COL.ER 05:39 → MEDICAL 12:25
PROVIDERS: Emergency Medicine; ADMIT Internal Medicine
DX: G40.909 Epilepsy, unspecified, not intractable, without status epilepticus (principal); R41.82 Altered mental status, unspecified; E11.10 Type 2 diabetes mellitus with ketoacidosis without coma; E11.22 Type 2 diabetes mellitus with diabetic chronic kidney disease; I12.9 Hypertensive chronic kidney disease with stage 1 through stage 4 chronic kidney disease, or unspecified chronic kidney disease; N18.9 Chronic kidney disease, unspecified; I69.351 Hemiplegia and hemiparesis following cerebral infarction affecting right dominant side; E55.9 Vitamin D deficiency, unspecified; E78.1 Pure hyperglyceridemia; Z79.84 Long term (current) use of oral hypoglycemic drugs; Z79.4 Long term (current) use of insulin; Z79.899 Other long term (current) drug therapy
CPT/HCPCS: G0378; J0456; J0696; J1815; J2405; J2550; J7030; J7050; Q9967

== ENCOUNTER 2023-01-09 10:30 | Outpatient (RCR) | payer OTHER, MEDICARE | END 2023-01-15 | disposition home or self-care (01) | LOC: MKS.ESL.PT | DX: G46.4 Cerebellar stroke syndrome (principal) ==

== ENCOUNTER 2023-06-02 08:52 | Observation (INO) | payer MEDICARE ==
[~2023-06-02] VITALS: Ht 170.2 cm; Wt 66.2 kg
[~2023-06-02 08:52] MED LIST changes: -DICLOFENAC SOD2.5 ML TOP; +LIPITOR 40MG TA40 MG PO; -LIPITOR 80MG80 MG PO; +VOLTAREN GEL 1%1 TU TP; +ZOFRAN ODT4 MG PO
[2023-06-02 09:21] LABS: BASO # 0.1 K/mm3 (0.0-0.2); BASO % 0.6 % (0.0-2.0); EOS # 0.1 K/mm3 (0.0-0.7); EOS % 0.7 % (0.0-4.0); GRAN # 7.2 K/mm3 (1.4-6.5); GRAN % 81.4 % (42.2-75.2); HEMATOCRIT 37.6 % (42.0-52.0); HEMOGLOBIN 12.5 g/dl (13.5-18.0); LYMPH # 1.1 K/mm3 (1.2-3.4); LYMPH % 11.9 % (20.0-51.0); MEAN CELL VOLUME 93 fl (80.0-100.0); MEAN CORPUSCULAR HEMOGLOBIN 31 pg (27-31); MEAN CORPUSCULAR HGB CONC 33 g/dl (33.0-37.0); MEAN PLATELET VOLUME 9.3 fl (7.4-10.4); MONO # 0.5 K/mm3 (0.1-0.6); MONO % 5.1 % (1.7-9.3); PLATELET COUNT 239 K/mm3 (130-400); RED BLOOD COUNT 4.05 M/mm3 (4.20-5.60); REDCELL DISTRIBUTION WIDTH-CV 12.3 % (11.5-14.5)
[2023-06-02 09:45] LABS: ALBUMIN 4.3 gm/dL (3.4-4.8); BILIRUBIN,TOTAL 0.3 mg/dL (0.2-1.2); CREATININE, serum 1.74 mg/dL (0.72-1.25); POTASSIUM 4.1 mmol/L (3.5-4.5); TOTAL PROTEIN 7.9 gm/dL (6.2-8.1)
[2023-06-02 09:53] LABS: TROPONIN-I 0.014 ng/mL (0.00-0.033)
[2023-06-02 10:19] LABS: COLLECTION METHOD CLEAN CATCH
[2023-06-02 10:31] LABS: SQUAMOUS EPITHELIAL None Seen /hpf (0-10); URINE BACTERIA None Seen /hpf (NONE SEEN); URINE RBC 0-2 /hpf (0-2); URINE WBC None Seen /hpf (0-2)
[2023-06-02 10:35] LABS: PH 7.5 (5.0-8.5); URINE APPEARANCE Clear (CLEAR/HAZY); URINE BLOOD Negative (NEGATIVE); URINE COLOR Yellow (YELLOW); URINE GLUCOSE Negative (NEGATIVE); URINE KETONE Negative (NEGATIVE); URINE NITRATE Negative (NEGATIVE); URINE PROTEIN(semi-quant) TRACE (NEGATIVE); URINE UROBILINOGEN 0.2 E.U/dL (0.2-1.0)
[2023-06-02] MEDS ORDERED: DULCOLAX TAB5 MG PO (14:47)
[2023-06-02] MEDS ORDERED: PROSCAR 5MG5 MG PO (14:47)
[2023-06-02] MEDS ORDERED: ZESTRIL2.5 MG PO (14:47)
[2023-06-02] MEDS ORDERED: SODIUM CHLORI1000 M4 PO (14:48)
[2023-06-02 15:41] VITALS: BP 167/90; PULSE 73; TEMP 98.5
--- NOTE | 2023-06-02 16:48 | NUR ---
Patient admitted to unit around 1500 and tranferred from ED cart to bed x3 assist. Patient is alert to self and situation, but could not tell the day/location/or his age. Skin is intact. Patient wears brace to right leg and utilizes a cane for ambulation. Patient unable to answer admission questions fully and speech is slurred and confused at times. Daughter Matthew called and assisted in admission questions. LR running at 75 through IV site to left hand. Patient reports pain to right side, lidocaine patch applied per orders. Patient and daughter state he fell early this morning at home prior to emergency room visit. Patient currently in bed with call light in reach and bed alarm on. Fall risk precautions in place.
--- NOTE | 2023-06-02 18:20 | NUR ---
Patient continues to do well. No increase in stroke symptoms noted. Swallow study complete by speech therapy and stated he can be on minced/moist diet with thin liquids due to no teeth. Patient currently in bed with call light in reach and fall precautions in place. Seizure precautions initiated due to seizure disorder history. Fluids running through IV per orders. All needs met at this time.
[2023-06-02 19:33] VITALS: BP 148/83; PULSE 87; TEMP 98.4
--- NOTE | 2023-06-02 20:00 | NUR ---
Initial shift assessment done- pt is confused as to date/time/year/why he is here, VSS, Speech is hard to understand which is his baseline, right side weak, right hand contracture, Tele on SR, IV fluids of LR at 75cc/hr, using urinal to void, pt wanting his Valium from home-- explained that it is on hold- did talk to Dr Us and did confirmed he cannot have the valium tonight - pt told of this,
[2023-06-02 21:00] VITALS: BP_SYST 148
[2023-06-02 23:37] VITALS: BP 150/80; PULSE 85; TEMP 98.2
[2023-06-03 03:10] VITALS: BP 158/87; PULSE 85; TEMP 98.3
--- NOTE | 2023-06-03 03:11 | NUR ---
Has not been sleeping much, remains somewhat confused, states he [facility] be at the [facility], upset that hes here, why am i here?? on his light often-- repositioned, did do a bladder scan after pt voided 125cc,, did have 300cc in his bladder, but 30 minutes later did void 200cc,, pt states having a headache - did give tylenol at this time- no changes in neuros ,
--- NOTE | 2023-06-03 05:34 | NUR ---
Is sleeping at this time, seizure pads on bed, bed alarm on, no changes - remains confused to place and time, no changes in neuros
[2023-06-03 06:30] LABS: BASO % 0.7 % (0.0-2.0); EOS # 0.1 K/mm3 (0.0-0.7); EOS % 1.1 % (0.0-4.0); GRAN # 3.5 K/mm3 (1.4-6.5); GRAN % 66.3 % (42.2-75.2); HEMOGLOBIN 11.1 g/dl (13.5-18.0); LYMPH # 1.2 K/mm3 (1.2-3.4); LYMPH % 22.3 % (20.0-51.0); MEAN CELL VOLUME 92 fl (80.0-100.0); MEAN CORPUSCULAR HEMOGLOBIN 32 pg (27-31); MEAN CORPUSCULAR HGB CONC 35 g/dl (33.0-37.0); MEAN PLATELET VOLUME 9.4 fl (7.4-10.4); MONO # 0.5 K/mm3 (0.1-0.6); MONO % 9.4 % (1.7-9.3); PLATELET COUNT 219 K/mm3 (130-400); RED BLOOD COUNT 3.47 M/mm3 (4.20-5.60); REDCELL DISTRIBUTION WIDTH-CV 12.3 % (11.5-14.5)
[2023-06-03 06:45] LABS: CALCIUM 8.5 mg/dL (8.4-10.2); CREATININE, serum 1.51 mg/dL (0.72-1.25); POTASSIUM 4.3 mmol/L (3.5-4.5)
[2023-06-03 07:37] VITALS: BP 127/68; PULSE 60; TEMP 98
--- NOTE | 2023-06-03 09:00 | NUR ---
Patient is resting in bed, alert and partially oriented, just finished his breakfast. Assessment completed, meds provided. No further needs at this time. Call light within reach. Bed alarm on.
[2023-06-03] MEDS ORDERED: PLAVIX 75MG TAB75 MG PO (09:16)
[2023-06-03] MEDS ORDERED: SENOKOT S 50 MG1 TAB PO (09:27)
[2023-06-03] MEDS ORDERED: MIRALAX510G PO (09:27)
[2023-06-03 11:11] VITALS: BP 144/76; PULSE 71; TEMP 98.1
--- NOTE | 2023-06-03 11:18 | NUR ---
House Mover rounds: Patient was lying in bed watching TV. He thinks he is going home today. House Mover provided Patient with a Bible. House Mover prayed for Patient. Patient thanked House Mover for the visit. UTILITY ACCOUNTS DIRECTOR were entering room as House Mover was departing.
--- NOTE | 2023-06-03 14:30 | NUR ---
Patient and daughter received discharge information, all questions answered. IV acces and telemetry were discontinued. Pt was taken by wheelchair by AIR POLLUTION INSPECTOR.
== END 2023-06-03 14:30 | disposition home health service (06) ==
LOC: COL.ER 08:52 → MEDICAL 12:29
PROVIDERS: Emergency Medicine; Physician Assistant; ADMIT Internal Medicine
DX: R53.1 Weakness (principal); R10.9 Unspecified abdominal pain; R47.81 Slurred speech; N32.89 Other specified disorders of bladder; K59.00 Constipation, unspecified; R11.2 Nausea with vomiting, unspecified; N18.9 Chronic kidney disease, unspecified; D64.9 Anemia, unspecified; G81.91 Hemiplegia, unspecified affecting right dominant side; G40.909 Epilepsy, unspecified, not intractable, without status epilepticus; I10 Essential (primary) hypertension; E87.1 Hypo-osmolality and hyponatremia; E78.5 Hyperlipidemia, unspecified; E11.9 Type 2 diabetes mellitus without complications; E78.1 Pure hyperglyceridemia; M19.90 Unspecified osteoarthritis, unspecified site; W19.XXXA Unspecified fall, initial encounter; Z87.820 Personal history of traumatic brain injury; Z87.891 Personal history of nicotine dependence; Z79.899 Other long term (current) drug therapy; Z79.4 Long term (current) use of insulin; Z79.82 Long term (current) use of aspirin
CPT/HCPCS: A9284; G0378; J1815; J7120; Q9967